=== PATIENT | female | born 1965 | race Caucasian/White ===

== ENCOUNTER → 2023-06-25 07:20 | Outpatient (REF) | payer BC, SELFPAY ==
[2023-06-25 08:24] LABS: % Basophils 0.5 % (0-2); % Eosinophils 3.9 % (0-6); % Immature Granulocytes 0.5 % (0-0.5); % Lymphocytes 27.5 % (20.5-51.1); % Monocytes 11.6 % (1.7-9.3); Absolute Eosinophils 0.3 10^3/uL (0-0.7); Absolute Lymphocytes 1.8 10^3/uL (1.2-3.4); Absolute Monocytes 0.8 10^3/uL (0.1-0.6); Absolute Neutrophils 3.7 10^3/uL (1.4-6.5); Hematocrit 41.9 % (37.0-47.0); Hemoglobin 13.8 g/dL (12.0-16.0); Mean Corp Hgb Conc. 32.9 g/dL (33.0-37.0); Mean Corpuscular Hgb 28.5 pg (27.0-31.0); Mean Corpuscular Volume 86.4 fL (81.0-99.0); Mean Platelet Volume 9.4 fL (7.4-10.4); Nucleated Red Blood Cells % 0 %; Platelet Count 449 10^3/uL (130-400); Red Blood Cell Count 4.85 10^6/uL (4.20-5.40); White Blood Cell Count 6.6 10^3/uL (4.8-10.8)
[2023-06-25 08:32] LABS: INR 0.94; PT 12.5 Sec (11.4-14.6)
[2023-06-25 10:48] LABS: ALT (SGPT) 17 U/L (0-35); AST (SGOT) 29 U/L (14-36); Alkaline Phosphatase 66 U/L (38-126); Blood Urea Nitrogen 20 mg/dl (7-17); Calcium 9.6 mg/dl (8.4-10.2); Carbon Dioxide 20 mmol/L (22-30); Chloride 102 mmol/L (98-107); Glucose 111 mg/dl (70-99); Sodium 135 mmol/L (135-145); Total Bilirubin 0.5 mg/dl (0.2-1.3); Total Protein 7.5 g/dl (6.3-8.2); eGFR > 60.00
== END ==
LOC: REG 07:20
PROVIDERS: ATTENDING PHYSICIAN Specialist; FAMILY PHYSICIAN Family Medicine
DX: C67.9 Malignant neoplasm of bladder, unspecified (principal)
CPT/HCPCS: 36415; 80053; 85025; 85610

== ENCOUNTER → 2023-07-03 11:26 | Outpatient (REF) | payer BC, SELFPAY | LOC: RAD 11:26 | PROVIDERS: ATTENDING PHYSICIAN Specialist; FAMILY PHYSICIAN Family Medicine | DX: C67.9 Malignant neoplasm of bladder, unspecified (principal) | CPT/HCPCS: 36415; 74178; Q9967 ==

== ENCOUNTER → 2023-08-07 06:10 | Day surgery (SDC) | payer BC, SELFPAY ==
[2023-08-06 11:40] VITALS: BP 139/83
[2023-08-07] VITALS (10 sets, daily range): BP systolic 124–146; BP diastolic 02–102; BMI 28.6
[2023-08-07] MEDS: CYSVIEW KIT 100 MG INTRAVES (07:30)
[2023-08-07] MEDS: NORMOSOL-R 1000 IV (07:53)
[2023-08-07] MEDS: SYRINGE NON-PUMP 50 ML IRRIG (09:11)
[2023-08-07] MEDS: SYRINGE NON-PUMP 50 MG IRRIG (09:11)
[2023-08-07] MEDS: DETROL LA 4 MG PO (09:33)
[2023-08-07] MEDS: VALIUM INJECTION 2.5 MG IV (09:35)
== END ==
LOC: SDS 06:10
PROVIDERS: ATTENDING PHYSICIAN Specialist
DX: C67.8 Malignant neoplasm of overlapping sites of bladder (principal); Z87.440 Personal history of urinary (tract) infections
CPT/HCPCS: 52235; 88307; A9589; J9201

== ENCOUNTER → 2023-09-02 07:17 | Outpatient (REF) | payer BC, SELFPAY ==
[2023-09-02 07:55] LABS: % Basophils 0.5 % (0-2); % Immature Granulocytes 0.2 % (0-0.5); % Lymphocytes 32.9 % (20.5-51.1); % Monocytes 10.8 % (1.7-9.3); % Neutrophils 52.6 % (42.2-75.2); Absolute Eosinophils 0.2 10^3/uL (0-0.7); Absolute Lymphocytes 1.9 10^3/uL (1.2-3.4); Absolute Monocytes 0.6 10^3/uL (0.1-0.6); Hematocrit 42.4 % (37.0-47.0); Hemoglobin 14.1 g/dL (12.0-16.0); Mean Corp Hgb Conc. 33.3 g/dL (33.0-37.0); Mean Corpuscular Hgb 28.4 pg (27.0-31.0); Mean Corpuscular Volume 85.3 fL (81.0-99.0); Nucleated Red Blood Cells % 0 %; Platelet Count 517 10^3/uL (130-400); Red Blood Cell Count 4.97 10^6/uL (4.20-5.40); Red Cell Dist. Width 13.7 % (11.5-14.5); White Blood Cell Count 5.8 10^3/uL (4.8-10.8)
[2023-09-02 08:30] LABS: ALT (SGPT) 19 U/L (0-35); AST (SGOT) 23 U/L (14-36); Albumin 4.4 g/dl (3.5-5.0); Alkaline Phosphatase 62 U/L (38-126); Blood Urea Nitrogen 11 mg/dl (7-17); Calcium 9.5 mg/dl (8.4-10.2); Carbon Dioxide 24 mmol/L (22-30); Chloride 107 mmol/L (98-107); Glucose 93 mg/dl (70-99); HDL Cholesterol 61 mg/dl; LDL Cholesterol, Calculated 169 mg/dl; Potassium 4.7 mmol/L (3.5-5.1); Sodium 137 mmol/L (135-145); Total Bilirubin 0.4 mg/dl (0.2-1.3); Total Cholesterol 268 mg/dl (50-199); Total Protein 7.5 g/dl (6.3-8.2); Triglyceride 193 mg/dl (10-149); Very Low Density Lipoprotein 38 mg/dl (0-30); eGFR > 60.00
[2023-09-02 09:11] LABS: TSH Reflex To Free T4 6.38 uIU/ml (0.47-4.68)
[2023-09-02 09:13] LABS: Estradiol 45.7 pg/ml
[2023-09-02 09:38] LABS: Free T4 0.88 ng/dl (0.78-2.19)
== END ==
LOC: REG 07:17
PROVIDERS: ATTENDING PHYSICIAN Family Medicine
DX: E78.00 Pure hypercholesterolemia, unspecified (principal); E03.9 Hypothyroidism, unspecified; C67.9 Malignant neoplasm of bladder, unspecified; Z00.00 Encounter for general adult medical examination without abnormal findings; Z78.0 Asymptomatic menopausal state
CPT/HCPCS: 36415; 80053; 80061; 82670; 83001; 83002; 84270; 84402; 84403; 84439; 84443; 85025

== ENCOUNTER → 2023-09-10 16:55 | Outpatient (REF) | payer BC, SELFPAY | LOC: WDC 16:55 | PROVIDERS: ATTENDING PHYSICIAN Family Medicine | DX: Z12.31 Encounter for screening mammogram for malignant neoplasm of breast (principal) | CPT/HCPCS: 77063; 77067 ==

== ENCOUNTER → 2024-07-29 15:07 | Outpatient (REF) | payer BC, SELFPAY | LOC: WDC 15:07 | PROVIDERS: ATTENDING PHYSICIAN Family Medicine | DX: R92.2 Inconclusive mammogram (principal) | CPT/HCPCS: 76641 ==

== ENCOUNTER → 2024-09-15 17:16 | Outpatient (REF) | payer BC, SELFPAY | LOC: WDC 17:16 | PROVIDERS: ATTENDING PHYSICIAN Family Medicine | DX: Z12.31 Encounter for screening mammogram for malignant neoplasm of breast (principal) | CPT/HCPCS: 77063; 77067 ==

== ENCOUNTER → 2024-11-23 07:40 | Outpatient (REF) | payer BC, SELFPAY ==
[2024-11-23 09:13] LABS: Hematocrit 49.4 % (37.0-47.0); Hemoglobin 15.9 g/dL (12.0-16.0); Mean Corp Hgb Conc. 32.2 g/dL (33.0-37.0); Mean Corpuscular Volume 86.7 fL (81.0-99.0); Nucleated Red Blood Cells % 0 %; Platelet Count 398 10^3/uL (130-400); Red Cell Dist. Width 13.7 % (11.5-14.5)
[2024-11-23 09:42] LABS: ALT (SGPT) 18 U/L (0-35); AST (SGOT) 26 U/L (14-36); Albumin 4.7 g/dl (3.5-5.0); Alkaline Phosphatase 58 U/L (38-126); Blood Urea Nitrogen 14 mg/dl (7-17); Calcium 10.6 mg/dl (8.4-10.2); Carbon Dioxide 27 mmol/L (22-30); Chloride 101 mmol/L (98-107); Glucose 87 mg/dl (70-99); HDL Cholesterol 61 mg/dl; LDL Cholesterol, Calculated 202 mg/dl; Potassium 4.6 mmol/L (3.5-5.1); Sodium 138 mmol/L (135-145); Total Protein 8.1 g/dl (6.3-8.2); Very Low Density Lipoprotein 42 mg/dl (0-30); eGFR > 60.00
== END ==
LOC: REG 07:40
PROVIDERS: ATTENDING PHYSICIAN Family Medicine
DX: E78.00 Pure hypercholesterolemia, unspecified (principal); E03.9 Hypothyroidism, unspecified; R79.89 Other specified abnormal findings of blood chemistry; I10 Essential (primary) hypertension; Z00.00 Encounter for general adult medical examination without abnormal findings
CPT/HCPCS: 36415; 80053; 80061; 84439; 84443; 85025

== ENCOUNTER → 2024-12-16 16:52 | Outpatient (REF) | payer BC, SELFPAY ==
[2024-12-16 17:48] LABS: Calcium 9.0 mg/dl (8.4-10.2)
== END ==
LOC: REG 16:52
PROVIDERS: ATTENDING PHYSICIAN Family Medicine
DX: E83.52 Hypercalcemia (principal)
CPT/HCPCS: 36415; 83970

== ENCOUNTER → 2025-01-26 17:09 | Outpatient (REF) | payer BC, SELFPAY | LOC: REG 17:09 | PROVIDERS: ATTENDING PHYSICIAN Family Medicine | DX: E06.3 Autoimmune thyroiditis (principal) | CPT/HCPCS: 36415; 84443 ==

== ENCOUNTER → 2025-02-02 16:57 | Outpatient (REF) | payer BC, SELFPAY | LOC: RAD 16:57 | PROVIDERS: ATTENDING PHYSICIAN Specialist; FAMILY PHYSICIAN Family Medicine | DX: C67.9 Malignant neoplasm of bladder, unspecified (principal) | CPT/HCPCS: 74178; Q9967 ==

== ENCOUNTER → 2025-03-10 07:50 | Outpatient (REF) | payer BC, SELFPAY ==
[2025-03-10 10:30] LABS: ALT (SGPT) 15 U/L (0-35); AST (SGOT) 21 U/L (14-36); Albumin 4.4 g/dl (3.5-5.0); Alkaline Phosphatase 56 U/L (38-126); Blood Urea Nitrogen 16 mg/dl (7-17); Calcium 9.2 mg/dl (8.4-10.2); Carbon Dioxide 25 mmol/L (22-30); Chloride 105 mmol/L (98-107); Glucose 96 mg/dl (70-99); HDL Cholesterol 52 mg/dl; LDL Cholesterol, Calculated 107 mg/dl; Potassium 4.8 mmol/L (3.5-5.1); Sodium 138 mmol/L (135-145); Total Protein 7.6 g/dl (6.3-8.2); Very Low Density Lipoprotein 27 mg/dl (0-30); eGFR > 60.00
== END ==
LOC: REG 07:50
PROVIDERS: ATTENDING PHYSICIAN Family Medicine
DX: E78.2 Mixed hyperlipidemia (principal)
CPT/HCPCS: 36415; 80053; 80061